=== PATIENT | male | born 1965 | race African-American/Black ===

== ENCOUNTER 2019-09-09 22:46 | Emergency (ER) | payer SELFPAY ==
[~2019-09-09] VITALS: Ht 182.9 cm; Wt 112.5 kg
[2019-09-09 22:57] VITALS: BP_SYST 122
--- NOTE | 2019-09-09 23:09 | NUR ---
Patient triaged and placed in waiting room. VSS and patient appears in no acute distress at this time. Accompanied by family, awaiting available bed, and MD notified of need for MSE.
--- NOTE | 2019-09-10 00:38 | NUR ---
Patient to ER bed 2 to gown for evaluation. Side rails up. Report given to DIANE Lujan.
--- NOTE | 2019-09-10 00:40 | NUR ---
PLACED IN BED 2. HERE FOR FEVER,COUGH,RUNNY NOSE, SORE THROAT,GENERALIZED BODYACHES,NAUSEA,VOMITING. AWAITING ER-MD EVALUATION.
--- NOTE | 2019-09-10 01:40 | NUR ---
ER-MD CAME BY BEDSIDE TO EVALUATE PT.
[2019-09-10] MEDS ORDERED: AMOXICILLIN 500 MG CAPSULE PO ONE (02:00)
--- NOTE | 2019-09-10 02:18 | NUR ---
AMOXICILLIN 500 MG PO GIVEN ORDERED.
--- NOTE | 2019-09-10 02:20 | NUR ---
DISCHARGED STABLE. PRESCRIPTION,VERBAL AND WRITTEN AFTERCARE INSTRUCTIONS GIVEN. VERBALIZED UNDERSTANDING. LEFT AMBULATORY WITH STABLE GAIT.
[2019-09-10 02:31] VITALS: BP_SYST 137
== END 2019-09-10 02:31 | disposition home or self-care (01) ==
LOC: SED 22:46
DX: J20.9 Acute bronchitis, unspecified (principal)
CPT/HCPCS: 36415; 86710; 99283

== ENCOUNTER 2020-11-08 18:42 | Emergency (ER) | payer SELFPAY ==
[~2020-11-08] VITALS: Ht 185.4 cm; Wt 108.9 kg
[2020-11-08 18:45] VITALS: BP_SYST 159
[2020-11-08 19:43] LABS: BASOPHILS # (AUTO) 0.1 K/uL (0.0-0.2); EOSINOPHILS # (AUTO) 0.3 K/uL (0.0-0.4); EOSINOPHILS % (AUTO) 2.1 % (0.0-4.0); HEMATOCRIT 44.6 % (36-54); HEMOGLOBIN 14.7 g/dL (14.0-18.0); LYMPHOCYTES % (AUTO) 33.7 % (20.5-51.5); MEAN CORPUSCULAR HEMOGLOBIN 31 pg (27-31); MEAN CORPUSCULAR HGB CONC 33 % (32-36); MEAN CORPUSCULAR VOLUME 94 fL (79.0-98.0); MONOCYTES # (AUTO) 1.1 K/uL (0.0-1.0); MONOCYTES % (AUTO) 9.4 % (1.7-9.3); NEUTROPHILS # (AUTO) 6.4 K/uL (1.8-7.7); NEUTROPHILS % (AUTO) 53.8 % (40.0-70.0); PLATELET COUNT (AUTO) 234 K/uL (130-430); RED BLOOD CELL COUNT(AUTO) 4.77 MIL/uL (4.2-6.2); RED CELL DISTRIBUTION WIDTH 13.7 % (9.0-15.0); WHITE BLOOD COUNT (AUTO) 11.9 K/uL (4.8-10.8)
[2020-11-08 19:57] LABS: CALCIUM 10.2 mg/dL (8.4-11.0); CREATININE 1.58 mg/dL (0.55-1.30); POTASSIUM 4.3 mmol/L (3.5-5.1)
[2020-11-08 20:03] LABS: ALBUMIN 3.9 g/dL (3.4-4.8); PROTHROMBIN TIME 10.6 SECS (9.5-12.5); TOTAL BILIRUBIN 0.5 mg/dL (0.0-1.0)
[2020-11-08 20:42] LABS: C-REACTIVE PROTEIN QUANT 0.2 mg/dL (0-0.5)
[2020-11-08] MEDS ORDERED: KETOROLAC TROMETHAMINE 60 MG/2 ML VIAL IM ONE (21:18)
[2020-11-08] MEDS: KETOROLAC TROMETHAMINE 60 MG/2 ML VIAL IM ONE (21:23)
[2020-11-08 21:34] LABS: BILIRUBIN,URINE NEGATIVE (NEGATIVE); CLARITY/URINE SL CLOUDY (CLEAR); COLOR,URINE YELLOW (YELLOW); GLUCOSE,URINE NEGATIVE (NEGATIVE); KETONES,URINE 1+ (NEGATIVE); LEUKOCYTE ESTERASE ,URINE 2+ (NEGATIVE); NITRITE, URINE NEGATIVE (NEGATIVE); PH,URINE 5.5 (5.0-8.0); PROTEIN URINE NEGATIVE (NEGATIVE); UROBILINOGEN,URINE 0.2 (0.2-1.0)
[2020-11-08 22:04] LABS: BLOOD, URINE TRACE (NEGATIVE)
[2020-11-08] MEDS ORDERED: HYDR-3919 PO (22:23)
[2020-11-08] MEDS ORDERED: CIPR500T5 PO (22:23)
[2020-11-08] MEDS ORDERED: IBUP-1969 PO (22:23)
[2020-11-08 22:30] LABS: BACTERIA,URINE FEW /HPF (None Seen); MUCUS,URINE None Seen /LPF (None Seen); WBC,URINE 20-50 /HPF (0-3)
[2020-11-08 22:44] VITALS: BP_SYST 132
== END 2020-11-08 22:44 | disposition home or self-care (01) ==
LOC: SED 18:42
DX: N39.0 Urinary tract infection, site not specified (principal); S83.8X2A Sprain of other specified parts of left knee, initial encounter; X50.1XXA Overexertion from prolonged static or awkward postures, initial encounter; Y93.89 Activity, other specified; Y92.89 Other specified places as the place of occurrence of the external cause; Y99.8 Other external cause status
CPT/HCPCS: 36415; 73564; 80053; 81000; 82150; 83605; 83690; 85025; 85610; 85730; 86140; 87086; 96372; 99284; J1885

== ENCOUNTER 2020-11-22 15:44 | Emergency (ER) | payer SELFPAY ==
[~2020-11-22] VITALS: Ht 182.9 cm; Wt 104.3 kg
[~2020-11-22 15:44] MED LIST: CIPR500T5 PO; HYDR-3919 PO; IBUP-1969 PO
[2020-11-22 15:45] VITALS: BP_SYST 162
[2020-11-22 16:02] VITALS: BP_SYST 162
== END 2020-11-22 16:02 | disposition home or self-care (01) ==
LOC: SED 15:44
DX: S83.92XA Sprain of unspecified site of left knee, initial encounter (principal); X58.XXXA Exposure to other specified factors, initial encounter; Y93.89 Activity, other specified; Y92.89 Other specified places as the place of occurrence of the external cause; Y99.8 Other external cause status
CPT/HCPCS: 99281

== ENCOUNTER 2020-12-03 08:45 | Emergency (ER) | payer SELFPAY ==
[~2020-12-03] VITALS: Ht 182.9 cm; Wt 113.4 kg
[2020-12-03 08:52] VITALS: BP_SYST 155
[2020-12-03] MEDS ORDERED: IBUP-1971 PO (11:25)
[2020-12-03] MEDS ORDERED: HYDR-3919 PO (11:25)
[2020-12-03 11:45] VITALS: BP_SYST 155
== END 2020-12-03 11:45 | disposition home or self-care (01) ==
LOC: SED 08:45
DX: G89.29 Other chronic pain (principal); M25.562 Pain in left knee; Z79.899 Other long term (current) drug therapy
CPT/HCPCS: 99283

== ENCOUNTER 2022-02-27 15:25 | Inpatient (IN) | payer SELFPAY ==
[~2022-02-27] VITALS: Ht 185.4 cm; Wt 86.2 kg
[~2022-02-27 15:25] MED LIST changes: +IBUP-1971 PO
[2022-02-27 15:27] VITALS: BP_SYST 151
--- NOTE | 2022-02-27 15:27 | NUR ---
Dr Hernandez evaluating patient in the [address]
--- NOTE | 2022-02-27 15:27 | NUR ---
Placed in room H1 . Placed on monitoring coordinator, blood pressure machine and pulse oximeter. To gown for exam. Side rails up.
--- NOTE | 2022-02-27 15:28 | NUR ---
Code stroke called at this time
--- NOTE | 2022-02-27 15:43 | NUR ---
ASSUME CARE OF PT AT THIS TIME, PT IN CT
[2022-02-27] MEDS ORDERED: iohexoL 350 mgI/mL, 100 ML INFUS..BTL IV ONE (15:49)
--- NOTE | 2022-02-27 15:49 | NUR ---
PT RETURNED FROM CT AT THIS TIME
[2022-02-27 16:06] LABS: BASOPHILS # (AUTO) 0.2 K/uL (0.0-0.2); BASOPHILS % (AUTO) 1.2 % (0.0-2.0); EOSINOPHILS # (AUTO) 0.3 K/uL (0.0-0.4); EOSINOPHILS % (AUTO) 2.2 % (0.0-4.0); HEMATOCRIT 42.6 % (36-54); HEMOGLOBIN 14.4 g/dL (14.0-18.0); LYMPHOCYTES % (AUTO) 19.8 % (20.5-51.5); MEAN CORPUSCULAR HEMOGLOBIN 31 pg (27-31); MEAN CORPUSCULAR HGB CONC 34 % (32-36); MEAN CORPUSCULAR VOLUME 91 fL (79.0-98.0); MONOCYTES # (AUTO) 1.2 K/uL (0.0-1.0); MONOCYTES % (AUTO) 7.8 % (1.7-9.3); NEUTROPHILS # (AUTO) 10.5 K/uL (1.8-7.7); PLATELET COUNT (AUTO) 234 K/uL (130-430); RED BLOOD CELL COUNT(AUTO) 4.71 MIL/uL (4.2-6.2); RED CELL DISTRIBUTION WIDTH 13.7 % (9.0-15.0); WHITE BLOOD COUNT (AUTO) 15.2 K/uL (4.8-10.8)
[2022-02-27 16:12] LABS: INR 1.2 (0.80-1.20); PROTHROMBIN TIME 11.6 SECS (9.5-12.5)
[2022-02-27 16:27] LABS: ANION GAP 10 (5-15); CALCIUM 10.7 mg/dL (8.4-11.0); CHLORIDE 101 mmol/L (98-107); CREATININE 1.54 mg/dL (0.55-1.30); GLUCOSE 186 mg/dL (70-99); POTASSIUM 3.5 mmol/L (3.5-5.1); SODIUM SERUM 137 mmol/L (136-145); UREA NITROGEN, BLOOD 12 mg/dL (8-21)
[2022-02-27 16:36] LABS: ALANINE AMINOTRANSFERASE 21 U/L (12-78); ALBUMIN 3.7 g/dL (3.4-4.8); ASPARTATE AMINOTRANSFERASE 40 U/L (10-37); TOTAL BILIRUBIN 0.6 mg/dL (0.0-1.0)
[2022-02-27 16:40] LABS: GFR AFRICAN AMERICAN 60 mL/min (>90)
--- NOTE | 2022-02-27 17:19 | NUR ---
PT RESTING IN BED, VSS, RESPIRATIONS EVEN NON LABORED
--- NOTE | 2022-02-27 17:22 | NUR ---
PENDING NEUROLOGY CODE STROKE
--- NOTE | 2022-02-27 17:56 | NUR ---
Pt moved to bed 08
--- NOTE | 2022-02-27 18:27 | NUR ---
UA SENT TO THE LAB AT THIS TIME
--- NOTE | 2022-02-27 19:17 | NUR ---
Received report at this time. Pt presently on monitor. NO acute distress noted. Pt denies pain.
[2022-02-27] MEDS ORDERED: NITROGLYCERIN 0.4 MG TAB.SUBL SL PRN (19:45)
[2022-02-27] MEDS ORDERED: ACETAMINOPHEN 500 MG TABLET PO PRN (19:45)
[2022-02-27] MEDS ORDERED: guaiFENesin/DEXTROMETHORPHAN 10 ML UDC PO PRN (19:45)
[2022-02-27] MEDS ORDERED: ONDANSETRON HCL 4 MG/2 ML VIAL IVP PRN (19:45)
[2022-02-27] MEDS ORDERED: ZOLPIDEM TARTRATE 5 MG TABLET PO PRN (19:45)
[2022-02-27] MEDS ORDERED: DOCUSATE SODIUM 100 MG/10 ML UDC PO PRN (19:45)
[2022-02-27] MEDS ORDERED: ASPIRIN 81 MG TAB.CHEW PO ONE (20:00)
[2022-02-27] MEDS ORDERED: ATORVASTATIN 20 MG TABLET PO ONE (20:00)
[2022-02-27] MEDS: HEPARIN SODIUM,PORCINE 5,000 UNITS/ML VIAL SUBCUT SCH (20:46)
[2022-02-27] MEDS ORDERED: METOPROLOL TARTRATE 25 MG TABLET PO SCH (21:00)
--- NOTE | 2022-02-27 22:37 | NUR ---
MRSA SPECIMEN SENT TO LAB.
--- NOTE | 2022-02-28 03:50 | NUR ---
Report given to DIANE Del Angel.
[2022-02-28 07:11] LABS: BASOPHILS # (AUTO) 0.1 K/uL (0.0-0.2); BASOPHILS % (AUTO) 1.1 % (0.0-2.0); EOSINOPHILS # (AUTO) 0.4 K/uL (0.0-0.4); EOSINOPHILS % (AUTO) 2.6 % (0.0-4.0); HEMATOCRIT 40.5 % (36-54); HEMOGLOBIN 13.9 g/dL (14.0-18.0); LYMPHOCYTES # (AUTO) 2.6 K/uL (1.0-5.5); LYMPHOCYTES % (AUTO) 19.1 % (20.5-51.5); MEAN CORPUSCULAR HEMOGLOBIN 31 pg (27-31); MEAN CORPUSCULAR HGB CONC 34 % (32-36); MEAN CORPUSCULAR VOLUME 89 fL (79.0-98.0); MONOCYTES # (AUTO) 1.4 K/uL (0.0-1.0); MONOCYTES % (AUTO) 10.4 % (1.7-9.3); NEUTROPHILS # (AUTO) 9.2 K/uL (1.8-7.7); NEUTROPHILS % (AUTO) 66.8 % (40.0-70.0); PLATELET COUNT (AUTO) 217 K/uL (130-430); RED BLOOD CELL COUNT(AUTO) 4.53 MIL/uL (4.2-6.2); RED CELL DISTRIBUTION WIDTH 13.8 % (9.0-15.0); WHITE BLOOD COUNT (AUTO) 13.8 K/uL (4.8-10.8)
[2022-02-28 07:56] LABS: CALCIUM 10.3 mg/dL (8.4-11.0); CREATININE 1.27 mg/dL (0.55-1.30); POTASSIUM 3.5 mmol/L (3.5-5.1)
[2022-02-28] MEDS ORDERED: lisinopriL 5 MG TABLET PO SCH (09:00)
[2022-02-28] MEDS ORDERED: ATORVASTATIN 20 MG TABLET PO SCH (09:00)
[2022-02-28] MEDS ORDERED: POTASSIUM CHLORIDE 20 MEQ TAB.PRT.SR PO PRN (09:00)
--- NOTE | 2022-02-28 09:36 | NUR ---
REPORT RECEIVED, PT TRANSFERRED TO BED 2, PT AAOX4, IN NAD. RESP EVEN AND UNLABORED, ON RA @98%. VSS, SKIN W/D/I.
--- NOTE | 2022-02-28 09:51 | NUR ---
ECHO DONE AT BEDSIDE, PT TOLERATED WELL
--- NOTE | 2022-02-28 11:12 | NUR ---
DR REESE CALLED AND I INFORMED HIM THAT DR CERVANTES STATES PT SHOULD HAVE A NEURO CONSULT. DR REESE STATES HE WILL PUT IN CONSULT.
[2022-02-28 11:30] VITALS: BP_SYST 157
--- NOTE | 2022-02-28 11:30 | NUR ---
ADMIT NOTE Received pt from ER to the floor with a diagnosis of CHEST PAIN, TIA. Admission process initiated. patient oriented to pain management, safety and call light-teach back done.
--- NOTE | 2022-02-28 11:42 | NUR ---
Patient will be admitted to care of DR REESE. Admitted to unit. Will go to room . Belongings list completed. Complete and up to date summary report printed. SBAR report to be given at bedside with opportunity for questions.
[2022-02-28] MEDS: ATORVASTATIN 20 MG TABLET PO SCH (12:37)
[2022-02-28] MEDS: ASPIRIN 81 MG TAB.CHEW PO SCH (12:37)
[2022-02-28] MEDS: METOPROLOL TARTRATE 25 MG TABLET PO SCH ×2 (12:38→21:49)
[2022-02-28] MEDS: HEPARIN SODIUM,PORCINE 5,000 UNITS/ML VIAL SUBCUT SCH ×2 (12:45→21:51)
[2022-02-28] MEDS: MORPHINE 2 MG/ML INJ. SYRINGE IVP PRN (12:46)
[2022-02-28] MEDS: PANTOPRAZOLE SODIUM 40 MG TAB PO SCH (12:52)
[2022-02-28] MEDS: lisinopriL 5 MG TABLET PO SCH (12:52)
--- NOTE | 2022-02-28 15:27 | NUR ---
rounds ambulated with physivcal therapy for front wheel walker
[2022-02-28 16:00] VITALS: BP_SYST 130
--- NOTE | 2022-02-28 18:52 | NUR ---
CLOSING PATIENTDENIES PAIN AT THIS TIME
--- NOTE | 2022-02-28 19:25 | NUR ---
RECEIVED REPORT ON PATIENT FROM DIANE ULLOA, ASSUMED CARE, AND STARTED ASSESSMENT. PATIENT IS AWAKE, ALERT AND ORIENTED X4. HE IS PLEASANT UPON APPROACH AND ABLE TO MAKE HIS NEEDS KNOWN. WILL CONTINUE TO MONITOR AND ASSESS FOR SAFETY AND COMFORT.
[2022-02-28 20:00] VITALS: BP_SYST 141
[2022-02-28 20:20] LABS: BILIRUBIN,URINE NEGATIVE (NEGATIVE); BLOOD, URINE 2+ (NEGATIVE); CLARITY/URINE CLEAR (CLEAR); COLOR,URINE YELLOW (YELLOW); GLUCOSE,URINE NEGATIVE (NEGATIVE); KETONES,URINE NEGATIVE (NEGATIVE); LEUKOCYTE ESTERASE ,URINE 1+ (NEGATIVE); NITRITE, URINE NEGATIVE (NEGATIVE); PROTEIN URINE NEGATIVE (NEGATIVE); UROBILINOGEN,URINE 0.2 (0.2-1.0)
[2022-02-28 20:54] LABS: BACTERIA,URINE FEW /HPF (None Seen)
[2022-02-28 20:57] LABS: COCAINE, URINE POSITIVE (NEG <=150); OPIATE, URINE POSITIVE (NEG <=100)
[2022-02-28 20:58] LABS: BARBITURATE, URINE NEGATIVE (NEG <=200); BENZODIAZEPINE, URINE NEGATIVE (NEG <=150); CANNABINOID, URINE NEGATIVE (NEG <=50); METHAMPHETAMINES SCREEN,URINE NEGATIVE (NEG <=500); PHENCYCLIDINE SCREEN,URINE NEGATIVE (NEG <=25); UR TRICYCLIC ANTIDEPRESSANTS NEGATIVE (NEG <=300); URINE AMPHETAMINE NEGATIVE (NEG <=500); URINE METHADONE NEGATIVE (NEG <=200); URINE OXYCODONE SCREEN NEGATIVE (NEG <=100); URINE PROPOXYPHENE SCREEN NEGATIVE (NEG <=300)
--- NOTE | 2022-02-28 22:25 | NUR ---
RECIVED TROPONIN LEVEL REPORT FROM LAB. THE MOST RECENT TROP IS 156. THE LEVEL CONTINUES TO TREND DOWN. MD NOT NOTIFIED. WILL CONTINUE TO MONITOR AND ASSESS FOR SAFETY AND COMFORT.
[2022-02-28 22:39] LABS: CHOLESTEROL 155 mg/dL (<200); HDL CHOLESTEROL 34 mg/dL (>45); LDL CHOLESTEROL 92 mg/dL (<100); TRIGLYCERIDES 175 mg/dL (30-150)
--- NOTE | 2022-03-01 01:40 | NUR ---
PATIENT'S SISTER LANDON CALLED TO CHECK ON HER BROTHER. ALL QUESTIONS WERE ANSWERED TO HER SATISFACTION.
[2022-03-01 02:20] LABS: CALCIUM 9.9 mg/dL (8.4-11.0); CREATININE 1.29 mg/dL (0.55-1.30); POTASSIUM 3.8 mmol/L (3.5-5.1)
--- NOTE | 2022-03-01 02:30 | NUR ---
REPORT FROM LAB ON PATIENT'S TROPONIN LEVEL = 157. BASICALLY EQUAL TO THE LAST LEVEL AT 156. MD NOT NOTIFIED. WILL CONTINUE TO MONITOR AND ASSESS.
[2022-03-01 02:33] LABS: BASOPHILS # (AUTO) 0.1 K/uL (0.0-0.2); BASOPHILS % (AUTO) 0.7 % (0.0-2.0); EOSINOPHILS # (AUTO) 0.3 K/uL (0.0-0.4); EOSINOPHILS % (AUTO) 1.8 % (0.0-4.0); HEMATOCRIT 40.6 % (36-54); LYMPHOCYTES # (AUTO) 2.2 K/uL (1.0-5.5); LYMPHOCYTES % (AUTO) 15.8 % (20.5-51.5); MEAN CORPUSCULAR HEMOGLOBIN 31 pg (27-31); MEAN CORPUSCULAR HGB CONC 34 % (32-36); MEAN CORPUSCULAR VOLUME 89 fL (79.0-98.0); MONOCYTES # (AUTO) 1.6 K/uL (0.0-1.0); MONOCYTES % (AUTO) 11.6 % (1.7-9.3); NEUTROPHILS # (AUTO) 9.9 K/uL (1.8-7.7); NEUTROPHILS % (AUTO) 70.1 % (40.0-70.0); PLATELET COUNT (AUTO) 207 K/uL (130-430); RED BLOOD CELL COUNT(AUTO) 4.56 MIL/uL (4.2-6.2); RED CELL DISTRIBUTION WIDTH 13.5 % (9.0-15.0); WHITE BLOOD COUNT (AUTO) 14.1 K/uL (4.8-10.8)
--- NOTE | 2022-03-01 04:08 | NUR ---
PATIENT AWAKENED WITH C/O SEVERE LEFT LEG PAIN AT 7/10 AND REQUESTED PAIN MEDICATION. MEDICATED PT WITH MORPHINE 2MG IVP FOR PAIN PER MD ORDERS. WILL CONTINUE TO MONITOR AND ASSESS FOR SAFETY AND COMFORT.
--- NOTE | 2022-03-01 04:40 | NUR ---
PATIENT IS SOUND ASLEEP RESTING IN NO APPARENT DISTRESS. ABOVE MEDICATION EFFECTIVE. WILL CONTINUE TO MONITOR AND ASSESS FOR SAFETY AND COMFORT.
[2022-03-01 08:00] VITALS: BP_SYST 120
[2022-03-01] MEDS: PANTOPRAZOLE SODIUM 40 MG TAB PO SCH (08:34)
[2022-03-01] MEDS: ASPIRIN 81 MG TAB.CHEW PO SCH (08:34)
[2022-03-01] MEDS: METOPROLOL TARTRATE 25 MG TABLET PO SCH (08:34)
[2022-03-01] MEDS: ATORVASTATIN 20 MG TABLET PO SCH (08:35)
[2022-03-01] MEDS: lisinopriL 5 MG TABLET PO SCH (08:35)
[2022-03-01] MEDS: HEPARIN SODIUM,PORCINE 5,000 UNITS/ML VIAL SUBCUT SCH (08:38)
[2022-03-01] MEDS: MORPHINE 2 MG/ML INJ. SYRINGE IVP PRN (08:45)
[2022-03-01] MEDS ORDERED: LIP20 PO (11:59)
[2022-03-01] MEDS ORDERED: ASA81 PO (11:59)
[2022-03-01] MEDS ORDERED: LISI-209 PO (11:59)
[2022-03-01] MEDS ORDERED: METO-542 PO (11:59)
[2022-03-01 12:00] VITALS: BP_SYST 122
--- NOTE | 2022-03-01 12:47 | NUR ---
PLEASE REFER TO YESTERDAY'S PHYSICAL THERAPY EVALUATION.
--- NOTE | 2022-03-01 14:15 | NUR ---
saw patient did not clear him for discharge he said maybe tomorrow. informed that neurologist did not clear for discharge and said he will cancel d/c order in a little bit.
[2022-03-01 16:00] VITALS: BP_SYST 125
--- NOTE | 2022-03-01 17:15 | NUR ---
Dietitian Recommendations * Cardiac diet ADRIÁN, MARLENE Please refer to Nutrition F/U for details. Addendum: 03/01/22 at [address] Amended: Links added.
[2022-03-01 20:00] VITALS: BP_SYST 137
[2022-03-02] MEDS: MORPHINE 2 MG/ML INJ. SYRINGE IVP PRN ×4 (02:05→14:19)
[2022-03-02 06:34] LABS: BASOPHILS # (AUTO) 0.1 K/uL (0.0-0.2); BASOPHILS % (AUTO) 0.5 % (0.0-2.0); EOSINOPHILS % (AUTO) 0.1 % (0.0-4.0); HEMOGLOBIN 13.9 g/dL (14.0-18.0); LYMPHOCYTES # (AUTO) 2.4 K/uL (1.0-5.5); LYMPHOCYTES % (AUTO) 14.9 % (20.5-51.5); MEAN CORPUSCULAR HEMOGLOBIN 31 pg (27-31); MEAN CORPUSCULAR HGB CONC 35 % (32-36); MEAN CORPUSCULAR VOLUME 88 fL (79.0-98.0); MONOCYTES % (AUTO) 12.6 % (1.7-9.3); NEUTROPHILS # (AUTO) 11.6 K/uL (1.8-7.7); PLATELET COUNT (AUTO) 197 K/uL (130-430); RED BLOOD CELL COUNT(AUTO) 4.54 MIL/uL (4.2-6.2); RED CELL DISTRIBUTION WIDTH 13.7 % (9.0-15.0); WHITE BLOOD COUNT (AUTO) 16.1 K/uL (4.8-10.8)
[2022-03-02 07:05] LABS: CALCIUM 10.4 mg/dL (8.4-11.0); CREATININE 1.24 mg/dL (0.55-1.30); POTASSIUM 3.6 mmol/L (3.5-5.1)
[2022-03-02] MEDS: PANTOPRAZOLE SODIUM 40 MG TAB PO SCH (09:00)
[2022-03-02] MEDS: ATORVASTATIN 20 MG TABLET PO SCH (10:07)
[2022-03-02] MEDS: lisinopriL 5 MG TABLET PO SCH (10:08)
[2022-03-02] MEDS: METOPROLOL SUCCINATE 50 MG TAB.SR.24H (TOPROL XL) PO SCH (10:08)
[2022-03-02] MEDS: ASPIRIN 81 MG TAB.CHEW PO SCH (10:11)
--- NOTE | 2022-03-02 12:05 | NUR ---
PATIENT WAS SEEN AGAIN FOR EVALUATION. ORIGINAL EVALUATION WAS PERFORMED 2 DAYS AGO. PLEASE REFER TO. TODAY, HE CONTINUES TO DEMONSTRATE INDEPENDENT BED MOBILITY, TRANSFERS AND GAIT WITH THE FWW. HE NEEDS TO USE THE FWW BECAUSE OF LEFT LEG PAIN. HE HAS LEFT KNEE PAIN AND SWELLING WHICH PHYSICAL THERAPIST REPORTED TO THE RN. RN IS TO INFORM MD. THERE IS NO NEED FOR FURTHER PHYSICAL THERAPY IN THIS SETTING. PATIENT WILL NEED A FWW FOR HOME USE AND POSSIBLY OUT PATIENT PHYSICAL THERAPY PENDING MD DIAGNOSIS AND PLAN OF TREATMENT FOR LLE RADIATING PAIN AND LEFT KNEE PAIN AND SWELLING.
[2022-03-02 12:06] LABS: NEUTROPHILS % (AUTO) 71.9 % (40.0-70.0)
[2022-03-02 15:15] VITALS: BP_SYST 129
[2022-03-02] MEDS ORDERED: KETOROLAC TROMETHAMINE 15 MG VIAL IVP ONE (16:00)
--- NOTE | 2022-03-02 17:18 | NUR ---
CONSULTATION PAGED REASON FOR CONSULTATION:KNEE EFFUSION, INFLAMATION WAS CONSULT CALLED?Y -PERSON WHO WAS NOTIFIED:JOSE CONSULTING PHYSICIAN:JALYN BARRY ([employer] SECURITY SPECIALIST) COMMERCIAL ART INSTRUCTOR SPECIALTY:IORTHO COMMERCIAL ART INSTRUCTOR PHONE NUMBER:[phone] REQUESTING PHYSICIAN:DR[facility]
[2022-03-02] MEDS ORDERED: KETOROLAC TROMETHAMINE 15 MG VIAL IVP PRN (17:30)
[2022-03-02 18:35] VITALS: BP_SYST 129
--- NOTE | 2022-03-02 18:35 | NUR ---
iv insertion new iv line #[address] hand with good blood return. flushed well . no s/s of infiltration noted. pt tolerated well. primary nurse rick CONTRERAS notified.
[2022-03-02] MEDS: PIPERACILLIN/TAZO 3.375/DEX-IS 50 ML IV SCH ×2 (18:51→23:55)
[2022-03-02 20:00] VITALS: BP_SYST 125
--- NOTE | 2022-03-02 20:00 | NUR ---
RECEIVED PT LYING IN BED, NO DISTRESS NOTED, DENIES CP PAIN. AAOX4, IV TO RT FA IV NOT INTACT. WILL NEED TO RESTART. Addendum: 03/02/22 at 2352 by [employer] tool adjuster 2300: ATTEMPTED X2 TO RESTART IV, PT IS VERY UPSET DUE TO AN UNSUCCESSFUL INSERTION . WILL NOT LET IT BE DONE A 3RD TIME. IT WAS EXPLAINED HE NEEDS AN IV TO GIVE IV ABX. DESPITE EXPLAINING PT DOES NOT WANT IT DONE. I EXPLAINED TO CHARGE NURSE, SHE WILL ATTEMPT LATER.
[2022-03-02] MEDS: HYDROcodone/ACETAMIN 7.5-325 MG TAB PO PRN (23:30)
[2022-03-03 06:36] LABS: BASOPHILS # (AUTO) 0.1 K/uL (0.0-0.2); BASOPHILS % (AUTO) 0.8 % (0.0-2.0); EOSINOPHILS # (AUTO) 0.1 K/uL (0.0-0.4); EOSINOPHILS % (AUTO) 0.6 % (0.0-4.0); HEMATOCRIT 40.3 % (36-54); HEMOGLOBIN 13.9 g/dL (14.0-18.0); LYMPHOCYTES # (AUTO) 2.6 K/uL (1.0-5.5); LYMPHOCYTES % (AUTO) 17.8 % (20.5-51.5); MEAN CORPUSCULAR HEMOGLOBIN 31 pg (27-31); MEAN CORPUSCULAR HGB CONC 35 % (32-36); MEAN CORPUSCULAR VOLUME 89 fL (79.0-98.0); MONOCYTES # (AUTO) 1.7 K/uL (0.0-1.0); MONOCYTES % (AUTO) 11.7 % (1.7-9.3); NEUTROPHILS % (AUTO) 69.1 % (40.0-70.0); PLATELET COUNT (AUTO) 213 K/uL (130-430); RED BLOOD CELL COUNT(AUTO) 4.53 MIL/uL (4.2-6.2); RED CELL DISTRIBUTION WIDTH 13.3 % (9.0-15.0); WHITE BLOOD COUNT (AUTO) 14.5 K/uL (4.8-10.8)
[2022-03-03] MEDS: HYDROcodone/ACETAMIN 7.5-325 MG TAB PO PRN (06:46)
[2022-03-03] MEDS: PIPERACILLIN/TAZO 3.375/DEX-IS 50 ML IV SCH (06:49)
[2022-03-03 07:06] LABS: CALCIUM 10.7 mg/dL (8.4-11.0); CREATININE 1.34 mg/dL (0.55-1.30); POTASSIUM 4.1 mmol/L (3.5-5.1)
[2022-03-03 08:00] VITALS: BP_SYST 119
[2022-03-03] MEDS: METOPROLOL SUCCINATE 50 MG TAB.SR.24H (TOPROL XL) PO SCH (09:00)
[2022-03-03] MEDS: ASPIRIN 81 MG TAB.CHEW PO SCH (09:05)
[2022-03-03] MEDS: PANTOPRAZOLE SODIUM 40 MG TAB PO SCH (09:05)
[2022-03-03] MEDS: lisinopriL 5 MG TABLET PO SCH (09:05)
[2022-03-03] MEDS: ATORVASTATIN 20 MG TABLET PO SCH (09:06)
--- NOTE | 2022-03-03 14:34 | NUR ---
Dispo code 07
== END 2022-03-03 11:20 | disposition left against medical advice (07) | DRG 280 ==
LOC: SED 15:25 → STU 19:33 → SMU 03-01 23:24
PROVIDERS: ADMIT Student in an Organized Health Care Education/Training Program; ATTEND Student in an Organized Health Care Education/Training Program
DX: I21.4 Non-ST elevation (NSTEMI) myocardial infarction (principal); N17.0 Acute kidney failure with tubular necrosis; E87.2 Acidosis; I12.9 Hypertensive chronic kidney disease with stage 1 through stage 4 chronic kidney disease, or unspecified chronic kidney disease; I24.8 Other forms of acute ischemic heart disease; G90.9 Disorder of the autonomic nervous system, unspecified; Z20.822 Contact with and (suspected) exposure to COVID-19; R74.01 Elevation of levels of liver transaminase levels; M54.16 Radiculopathy, lumbar region; M17.12 Unilateral primary osteoarthritis, left knee; E11.22 Type 2 diabetes mellitus with diabetic chronic kidney disease; N18.2 Chronic kidney disease, stage 2 (mild)
CPT/HCPCS: 36415; 70450-TC; 70496; 70498; 71045; 73564; 76376; 80048; 80053; 80061; 80307; 81000; 83605; 84484; 85025; 85610-TC; 85730-TC; 87081; 87086; 93005; 93306; 97116-GP; 99291; G0378; J1644; J2270; J2543; Q9967